=== PATIENT | male | born 1970 | race Caucasian/White ===

== ENCOUNTER 2017-05-03 08:32 | Day surgery (SDC) | payer OTHER ==
[~2017-05-03 08:32] MED LIST: Lactated Ringers 1,000 ML IV SCH; Lidocaine 1%/Sod Bicarbonate in NS 8.4% 1 ML Syringe IDERM PRN; Sodium Chloride 0.9% 10 ML Syringe FLUSH PRN
[2017-05-03] MEDS ORDERED: Midazolam 1 MG/ML 2 ML SDV ONE (09:43)
[2017-05-03] MEDS ORDERED: Propofol 200 MG/20 ML SDV ONE ×2 (09:43→10:19)
[2017-05-03] MEDS ORDERED: fentaNYL 250 MCG/5 ML SDV ONE (09:43)
[2017-05-03] MEDS ORDERED: Dexamethasone 4 MG/ML 5 ML MDV ONE (09:47)
[2017-05-03] MEDS ORDERED: ceFAZolin 1 GM Vial ONE (09:47)
[2017-05-03] MEDS ORDERED: Lidocaine 1% 4 ML ONE (09:47)
[2017-05-03] MEDS ORDERED: Ondansetron 4 MG/2 ML SDV ONE (09:47)
[2017-05-03] MEDS ORDERED: EPINEPHrine 1 MG/ML 30 ML MDV ONE (10:00)
[2017-05-03] MEDS ORDERED: Bupivacaine 0.25% 10 ML SDV ONE (10:04)
--- NOTE | 2017-05-03 10:06 | PCM.PREANE ---
Preanesthetic Assessment - Anesthesia/Transfusion/Family Hx Anesthesia History: Prior Anesthesia Without Reaction Family History of Anesthesia Reaction: No Transfusion History: No Prior Transfusion(s) - Review of Systems General: No Symptoms Pulmonary: No Symptoms, Other (Sleep Apnea. CPAP. ) Cardiovascular: No Symptoms Gastrointestinal: Other (Occasional heartburn maybe once a week.) Neurological: No Symptoms Other: Reports: Thyroid Problems - Physical Assessment NPO Status Date: 05/02/17 NPO Status Time: 23:30 O2 Sat by Pulse Oximetry: 96 Respiratory Rate: 18 Vital Signs: Last Vital Signs Temp 36.6 C 05/03/17 08:39 Pulse 73 05/03/17 08:39 Resp 18 05/03/17 08:39 BP 115/73 05/03/17 08:39 Pulse Ox 96 05/03/17 08:39 Height: 1.7 m Weight: 109.316 kg ASA Class: 2 Mental Status: Alert & Oriented x3 Airway Class: Mallampati = 2 Dentition: Reports: Normal Dentition Thyro-Mental Finger Breadths: 3 Mouth Opening Finger Breadths: 3 ROM/Head Extension: Full Lungs: Clear to Auscultation, Normal Respiratory Effort Cardiovascular: Regular Rate, Regular Rhythm - Lab Values: Laboratory Last Values MRSA (PCR) Negative 05/02/17 12:48 - Allergies Allergies/Adverse Reactions: Allergies Allergy/AdvReac Type Severity Reaction Status Date / Time No Known Allergies Allergy Verified 05/03/17 09:25 - Acknowledgements Anesthesia Type Planned: General Anesthesia Pt an Appropriate Candidate for the Planned Anesthesia: Yes Alternatives and Risks of Anesthesia Discussed w Pt/Guardian: Yes Pt/Guardian Understands and Agrees with Anesthesia Plan: Yes PreAnesthesia Questionnaire HEENT History: Reports: Impaired Vision, Other (See Below) Other HEENT History: wears glasses Cardiovascular History: Reports: None Respiratory History: Reports: Sleep Apnea Gastrointestinal History: Reports: None Genitourinary History: Reports: None FAMILY DAY CARE PROVIDER History: Reports: None Musculoskeletal History: Reports: Other (See Below) Other Musculoskeletal History: left knee pain Neurological History: Reports: None Psychiatric History: Reports: Depression Endocrine/Metabolic History: Reports: Hypothyroidism Hematologic History: Reports: None Immunologic History: Reports: None Oncologic (Cancer) History: Reports: None Dermatologic History: Reports: None - Past Surgical History HEENT Surgical History: Reports: Naso-Sinus Surgery Cardiovascular Surgical History: Reports: None Respiratory Surgical History: Reports: None GI Surgical History: Reports: None Female Surgical History: Reports: None Male Surgical History: Reports: None Endocrine Surgical History: Reports: None Neurological Surgical History: Reports: None Musculoskeletal Surgical History: Reports: Other (See Below) Other Musculoskeletal Surgeries/Procedures:: right shoulder surgery Oncologic Surgical History: Reports: None - SUBSTANCE USE Smoking Status *Q: Current Every Day Smoker Recreational Drug Use History: No - HOME MEDS Home Medications: Home Meds Levothyroxine [Synthroid] 88 mcg PO DAILY 05/02/17 [History] Acetaminophen/HYDROcodone [Bellerose 325-5 MG] 1 - 2 tab PO Q6H PRN #40 tablet 05/03 [Rx] Aspirin 325 mg PO BID #84 tab 05/03/17 [Rx] Sertraline HCl [Sertraline HCl] 50 mg PO DAILY 05/03/17 [History] Sertraline HCl [Sertraline HCl] 100 mg PO DAILY 05/03/17 [History] - CURRENT (IN HOUSE) MEDS Current Meds: Current Medications Lactated Ringer's (Ringers, Lactated) 1,000 mls @ 125 mls/hr IV ASDIRECTED JULITA Stop: 05/03/17 23:00 Last Admin: 05/03/17 08:50 Dose: 125 mls/hr Lidocaine/Sodium Bicarbonate (Buffered Lidocaine 1% In Ns 8.4%) 0.25 ml IDERM ONETIME PRN PRN Reason: Prior to IV Start Stop: 05/03/17 18:00 Last Admin: 05/03/17 08:49 Dose: 0.25 ml Sodium Chloride (Saline Flush) 10 ml FLUSH ASDIRECTED PRN PRN Reason: Keep Vein Open Stop: 05/03/17 18:00 Discontinued Medications Bupivacaine HCl (Sensorcaine-Mpf 0.25%) Confirm Administered Dose 30 ml .ROUTE .STK-MED ONE Stop: 05/03/17 10:05 Cefazolin Sodium (Ancef) Confirm Administered Dose 2 gm .ROUTE .STK-MED ONE Stop: 05/03/17 09:48 Dexamethasone (Dexamethasone) Confirm Administered Dose 20 mg .ROUTE .STK-MED ONE Stop: 05/03/17 09:48 Epinephrine HCl (Adrenalin) 3 mg .XX ONETIME ONE Stop: 05/03/17 10:01 Fentanyl (Sublimaze) Confirm Administered Dose 250 mcg .ROUTE .STK-MED ONE Stop: 05/03/17 09:44 Lidocaine HCl (Xylocaine-Mpf 1%) Confirm Administered Dose 4 mls @ as directed .ROUTE .STK-MED ONE Stop: 05/03/17 09:48 Midazolam HCl (Versed 1 Mg/Ml) Confirm Administered Dose 2 mg .ROUTE .STK-MED ONE Stop: 05/03/17 09:44 Ondansetron HCl (Zofran) Confirm Administered Dose 4 mg .ROUTE .STK-MED ONE Stop: 05/03/17 09:48 Propofol (Diprivan 20 Ml) Confirm Administered Dose 200 mg .ROUTE .STK-MED ONE Stop: 05/03/17 09:44
[2017-05-03] MEDS ORDERED: HYDROmorphone 1 MG/ML Syringe ONE (10:41)
[2017-05-03] MEDS ORDERED: Metoclopramide 10 MG/2 ML SDV ONE (11:11)
[2017-05-03] MEDS ORDERED: Citric Acid/Sodium Citrate Solution 30 ML Cup ONE (11:12)
[2017-05-03] MEDS ORDERED: Ketorolac 30 MG/ML SDV ONE (11:15)
[2017-05-03] MEDS ORDERED: Ondansetron 4 MG/2 ML SDV IVPUSH PRN (11:31)
[2017-05-03] MEDS ORDERED: fentaNYL 100 MCG/2 ML SDV IVPUSH PRN (11:31)
--- NOTE | 2017-05-03 11:32 | PCM.POSTAN ---
POST ANESTHESIA ASSESSMENT - MENTAL STATUS Mental Status: Somnolent - VITAL SIGNS Pulse Rate: 74 SaO2: 98 Resp Rate: 18 Blood Pressure: 124/75 Temperature: 36.9 C - RESPIRATORY Respiratory Status: Respiratory Rate WNL, Airway Patent, O2 Saturation Stable, Supplemental Oxygen - CARDIOVASCULAR CV Status: Pulse Rate WNL, Blood Pressure Stable - GASTROINTESTINAL GI Status: No Symptoms - PAIN Pain Score: 0 - POST OP HYDRATION Hydration Status: Adequate & Stable
[2017-05-03] MEDS ORDERED: Acetaminophen/HYDROcodone 325-5 MG Tab PO ONE (12:45)
[2017-05-03 14:06] VITALS: BP 104/83
--- NOTE | 2017-05-03 14:13 | PCM48HPAN ---
Post Anesthesia Note - EVALUATION WITHIN 48HRS OF ANESTHETIC Vital Signs in Normal Range: Yes Patient Participated in Evaluation: Yes Respiratory Function Stable: Yes Airway Patent: Yes Cardiovascular Function Stable: Yes Hydration Status Stable: Yes Pain Control Satisfactory: Yes Nausea and Vomiting Control Satisfactory: Yes Mental Status Recovered: Yes
--- NOTE | 2017-05-13 22:00 | PCM.OPNOTE ---
- General Post-Op/Procedure Note Date of Surgery/Procedure: 05/03/17 Operative Procedure(s): left knee video arthroscopy with chondroplasty of the patella and medial femoral condyle Pre Op Diagnosis: left knee patellar instability with chondromalacia Post-Op Diagnosis: Same Anesthesia Technique: General LMA, Local Primary Surgeon: Quinten Pal Anesthesia Provider: Dinora Israel X Ray Examiner Of Aircraft: Angely Mcclendon in mLs: 5 Complications: None Condition: Good
--- NOTE | 2017-05-14 09:25 | OR ---
DATE OF OPERATION: 05/03/2017 SURGEON: Quinten Pal MD OPERATION PERFORMED: Left knee video arthroscopy with chondroplasty of the patella and medial femoral condyle. PREOPERATIVE DIAGNOSIS: Left knee patellar instability with chondromalacia. POSTOPERATIVE DIAGNOSIS: Left knee patellar instability with chondromalacia. ANESTHESIA TECHNIQUE: General LMA with local ANESTHESIA PROVIDER: Stephanie Israel CRNA TRUST MAIL CLERK: Angely Mcclendon PA-C. ESTIMATED BLOOD LOSS: 5 mL. COMPLICATIONS: None. CONDITION: Stable. DESCRIPTION OF PROCEDURE: The patient was identified in the preop holding area where proper site was marked and identified by the surgeon. The patient was taken to the operating theater, where after adequate anesthesia, the patient's left lower extremity had a nonsterile tourniquet applied and then was sterilely prepped and draped in the usual sterile fashion. OR time-out was performed. The patient received 2 g of IV Ancef. At this time, the left lower extremity was exsanguinated. Tourniquet was insufflated to 250 mmHg. With the patient lying supine, the patient's knee was bent to 90 degrees, and anterior lateral portal was created. Scope trocar was introduced and a cursory examination showed severe grade 3/4 chondromalacia of both the medial and lateral facets of the patella with significant maltracking noted and tearing of the medial retinaculum. At this time attention was turned to the medial compartment, anterior medial portal was created with the use of a spinal needle and visualization of the medial compartment and a small amount of grade 2 chondromalacia of the medial femoral condyle measuring roughly 8 mm x 1 cm, but it was grade 2 at most. ACL was intact in the notch. The lateral compartment showed no signs of chondromalacia or meniscal tear. At this time, a chondroplasty was performed with medial femoral condyle as well as the patella bringing back to smooth borders. There were no loose flaps at this time. At this time, excess saline was drained from the knee. 0.25% Marcaine was injected around the incisional sites and 3-0 nylon was used for closure of skin. The patient was placed in a sterile soft dressing and sent to PACU in stable condition. MMODAL /[id number] [facility] CENTERDoug
== END 2017-05-03 13:45 | disposition home or self-care (01) ==
LOC: JD.SDS 08:32
PROVIDERS: ATTEND Orthopaedic Surgery
DX: M23.52 Chronic instability of knee, left knee (principal); M22.42 Chondromalacia patellae, left knee; E03.9 Hypothyroidism, unspecified; F32.9 Major depressive disorder, single episode, unspecified; I10 Essential (primary) hypertension; I25.10 Atherosclerotic heart disease of native coronary artery without angina pectoris; I48.91 Unspecified atrial fibrillation; I50.9 Heart failure, unspecified; E11.9 Type 2 diabetes mellitus without complications; J44.9 Chronic obstructive pulmonary disease, unspecified; G47.30 Sleep apnea, unspecified; Z99.89 Dependence on other enabling machines and devices; F17.200 Nicotine dependence, unspecified, uncomplicated
CPT/HCPCS: 29877; 87641; A9270; J0690; J1100; J1170; J1885; J2250; J2405; J2765; J3010; J7120; 01400; J2001; J2704

== ENCOUNTER 2017-06-18 06:06 | Day surgery (SDC) | payer OTHER ==
[~2017-06-18 06:06] MED LIST changes: +Acetaminophen 325 MG Tab PO SCH; +Pregabalin 25 MG Cap PO SCH; +oxyCODONE ER 10 MG TAB.ER PO SCH
--- NOTE | 2017-06-18 06:26 | PCM.PREANE ---
Preanesthetic Assessment - Anesthesia/Transfusion/Family Hx Anesthesia History: Prior Anesthesia Without Reaction Family History of Anesthesia Reaction: No Transfusion History: No Prior Transfusion(s) - Review of Systems General: No Symptoms Pulmonary: No Symptoms Cardiovascular: No Symptoms Gastrointestinal: No Symptoms Neurological: No Symptoms Other: Reports: Thyroid Problems - Physical Assessment NPO Status Date: 06/17/17 NPO Status Time: 21:00 Pulse: 82 O2 Sat by Pulse Oximetry: 98 Respiratory Rate: 16 Blood Pressure: 138/79 Temperature: 97.9 F Height: 5 ft 7 in Weight: 116 kg ASA Class: 2 Mental Status: Alert & Oriented x3 Airway Class: Mallampati = 2 Dentition: Reports: Normal Dentition Thyro-Mental Finger Breadths: 3 Mouth Opening Finger Breadths: 3 ROM/Head Extension: Full Lungs: Clear to Auscultation, Normal Respiratory Effort Cardiovascular: Regular Rate, Regular Rhythm - Lab Values: Laboratory Last Values MRSA (PCR) Negative 05/22/17 09:58 - Allergies Allergies/Adverse Reactions: Allergies Allergy/AdvReac Type Severity Reaction Status Date / Time No Known Allergies Allergy Verified 06/17/17 15:50 - Blood Blood Available: No - Acknowledgements Anesthesia Type Planned: Spinal Pt an Appropriate Candidate for the Planned Anesthesia: Yes Alternatives and Risks of Anesthesia Discussed w Pt/Guardian: Yes Pt/Guardian Understands and Agrees with Anesthesia Plan: Yes PreAnesthesia Questionnaire HEENT History: Reports: Impaired Vision, Other (See Below) Other HEENT History: wears glasses Cardiovascular History: Reports: None Respiratory History: Reports: Sleep Apnea Gastrointestinal History: Reports: None, GERD Genitourinary History: Reports: None PROPELLER ENGINEER History: Reports: None Musculoskeletal History: Reports: Other (See Below) Other Musculoskeletal History: left knee pain Neurological History: Reports: None Psychiatric History: Reports: Depression Endocrine/Metabolic History: Reports: Hypothyroidism, Obesity/BMI 30+ Hematologic History: Reports: None Immunologic History: Reports: None Oncologic (Cancer) History: Reports: None Dermatologic History: Reports: None - Past Surgical History Head Surgeries/Procedures: HEENT Surgical History: Reports: Naso-Sinus Surgery Cardiovascular Surgical History: Reports: None Respiratory Surgical History: Reports: None GI Surgical History: Reports: None Female Surgical History: Reports: None Male Surgical History: Reports: None Endocrine Surgical History: Reports: None Neurological Surgical History: Reports: None Musculoskeletal Surgical History: Reports: Arthroscopic Knee, Shoulder Surgery, Other (See Below) Other Musculoskeletal Surgeries/Procedures:: right shoulder surgery Oncologic Surgical History: Reports: None - SUBSTANCE USE Smoking Status *Q: Former Smoker (quit 2 months ago) Tobacco Use Within Last Twelve Months: Cigarettes, Smokeless Tobacco, Snuff/Dip Second Hand Smoke Exposure: No Days Per Week of Alcohol Use: 0 Recreational Drug Use History: No - HOME MEDS Home Medications: Home Meds Levothyroxine [Synthroid] 88 mcg PO DAILY 05/02/17 [History] Omeprazole Magnesium [Prilosec Otc] 20 mg PO DAILY 06/17/17 [History] - CURRENT (IN HOUSE) MEDS Current Meds: Current Medications Acetaminophen (Tylenol) 975 mg PO ASDIRECTED JULITA Stop: 06/18/17 09:00 Lactated Ringer's (Ringers, Lactated) 1,000 mls @ 125 mls/hr IV ASDIRECTED JULITA Stop: 06/18/17 23:00 Lidocaine/Sodium Bicarbonate (Buffered Lidocaine 1% In Ns 8.4%) 0.25 ml IDERM ONETIME PRN PRN Reason: Prior to IV Start Stop: 06/18/17 18:00 Oxycodone HCl (Oxycontin) 10 mg PO ASDIRECTED JULITA Stop: 06/18/17 09:00 Pregabalin (Lyrica) 50 mg PO ASDIRECTED JULITA Stop: 06/18/17 09:00 Sodium Chloride (Saline Flush) 10 ml FLUSH ASDIRECTED PRN PRN Reason: Keep Vein Open Stop: 06/18/17 18:00
[2017-06-18] MEDS ORDERED: Lidocaine 1% 0 ML ONE (06:34)
[2017-06-18] MEDS ORDERED: fentaNYL 100 MCG/2 ML SDV ONE (06:35)
[2017-06-18] MEDS ORDERED: Midazolam 1 MG/ML 2 ML SDV ONE (06:35)
[2017-06-18] MEDS ORDERED: Propofol 200 MG/20 ML SDV ONE ×2 (06:35→08:08)
[2017-06-18] MEDS ORDERED: ceFAZolin 1 GM Vial ONE (06:37)
[2017-06-18] MEDS ORDERED: Bupivacaine 0.75% 30 ML SDV ONE (06:42)
[2017-06-18] MEDS ORDERED: Pregabalin 25 MG Cap PO ONE (06:45)
[2017-06-18] MEDS ORDERED: Acetaminophen 325 MG Tab PO ONE (06:45)
[2017-06-18] MEDS ORDERED: oxyCODONE ER 10 MG TAB.ER PO ONE (06:45)
[2017-06-18] MEDS ORDERED: EPINEPHrine 1 MG/ML SDV ONE (06:56)
[2017-06-18] MEDS ORDERED: Ropivacaine 0.5% 5 MG/ML 30 ML SDV ONE (06:56)
[2017-06-18] MEDS ORDERED: Lactated Ringers 1,000 ML ONE ×2 (07:12)
[2017-06-18] MEDS ORDERED: Meperidine PF 50 MG/ML Syringe IVPUSH PRN (07:23)
[2017-06-18] MEDS ORDERED: fentaNYL 100 MCG/2 ML SDV IVPUSH PRN (07:23)
[2017-06-18] MEDS ORDERED: Ondansetron 4 MG/2 ML SDV IVPUSH PRN (07:23)
[2017-06-18] MEDS ORDERED: HYDROmorphone 0.5 MG/0.5 ML Syringe IVPUSH PRN (07:23)
[2017-06-18] MEDS ORDERED: Ketorolac 30 MG/ML SDV ONE (07:42)
[2017-06-18] MEDS ORDERED: Ondansetron 4 MG/2 ML SDV ONE (07:42)
[2017-06-18] MEDS: ceFAZolin 1 GM Vial ONE ×2 (07:58→08:10)
[2017-06-18] MEDS: Morphine 8 MG, EPINEPHrine 0.3 MG, Cefuroxime 750 MG, Ketorolac 30 MG, Sodium Chloride ... ONE ×10 (08:01→08:16)
[2017-06-18] MEDS: Bupivacaine 0.25% 30 ML SDV ONE ×2 (08:01→08:16)
[2017-06-18] MEDS: Vancomycin 1 GM SDV ONE ×2 (08:02→08:20)
--- NOTE | 2017-06-18 08:55 | PCM.POSTAN ---
POST ANESTHESIA ASSESSMENT - MENTAL STATUS Mental Status: Alert, Oriented - VITAL SIGNS Pulse Rate: 83 SaO2: 98 Resp Rate: 24 Blood Pressure: 111/65 Temperature: 97.9 F - RESPIRATORY Respiratory Status: Respiratory Rate WNL, Airway Patent, O2 Saturation Stable, Supplemental Oxygen - CARDIOVASCULAR CV Status: Pulse Rate WNL, Blood Pressure Stable - GASTROINTESTINAL GI Status: No Symptoms - PAIN Pain Score: 0 - POST OP HYDRATION Hydration Status: Adequate & Stable
--- NOTE | 2017-06-18 09:33 | PCM.SN ---
- Free Text/Narrative Note: Left selective femoral nerve block at the adductor canal for post-procedure pain control under US guidance requested by Dr. Pal. Time Out: 913 Start: 913 End: 921 Chart reviewed. Consent signed. Questions answered. Appropriate monitors applied. Time out performed. Left mid-shaft femur identified with ultrasound, scanning medially of femur, the femoral artery in the adductor canal visualized , and the femoral nerve located laterally to the artery. The skin was prepped lateral to the ultrasound probe with chlorahexadine times two. The 21ga 4 insulated block needle was inserted under direct ultrasound guidance into the adductor canal. 25mL of 0.5% ropivacaine with 1:200,000 epinephrine was injected circumferentially around the nerve with intermittent negative aspiration noted. Patient tolerated the procedure well. Aseptic technique noted along with sterile gloves and mask. See pictures on progress note and vital signs on nurses notes. Block completed in PACU with assist by Noemí Carver CRNA
--- NOTE | 2017-06-18 09:59 | CR ---
Left knee: AP and lateral views of the left knee were obtained. Comparison: No prior study available. Prosthesis seen within the patellofemoral joint. Medial and lateral joint compartments are maintained in height. Soft tissue air is noted from the surgical procedure. No acute bony abnormality is seen. Impression: 1. Satisfactory postoperative radiographic appearance of recently placed prosthesis within the patellofemoral joint. Diagnostic code #2
--- NOTE | 2017-06-18 11:04 | PCM48HPAN ---
Post Anesthesia Note - EVALUATION WITHIN 48HRS OF ANESTHETIC Vital Signs in Normal Range: Yes Patient Participated in Evaluation: Yes Respiratory Function Stable: Yes Airway Patent: Yes Cardiovascular Function Stable: Yes Hydration Status Stable: Yes Pain Control Satisfactory: Yes Nausea and Vomiting Control Satisfactory: Yes Mental Status Recovered: Yes (No complaints- in bed drinkiing and eating) Blood Pressure: 126/75
[2017-06-18] MEDS ORDERED: diphenhydrAMINE 25 MG Cap PO ONE (11:42)
[2017-06-18] MEDS ORDERED: Morphine 2 MG/ML Syringe IVPUSH PRN (12:51)
[2017-06-18] MEDS ORDERED: Acetaminophen/oxyCODONE 325-5 MG Tab PO PRN (12:55)
[2017-06-18] MEDS ORDERED: ceFAZolin 2 GM in Premix Bag 1 BAG IV SCH (13:30)
[2017-06-18 14:08] VITALS: BP 133/98
[2017-06-18] MEDS ORDERED: Ketorolac 60 MG/2 ML SDV IVPUSH ONE (14:33)
--- NOTE | 2017-06-25 07:53 | PCM.OPNOTE ---
- General Post-Op/Procedure Note Date of Surgery/Procedure: 06/18/17 Operative Procedure(s): left patellofemoral arthroplasty Pre Op Diagnosis: left patellofemoral arthritis Post-Op Diagnosis: Same Anesthesia Technique: Local, MAC, Regional Block, Spinal Primary Surgeon: Quinten Pal Anesthesia Provider: Otilio James [employer] Certified Network Associate: Angely Mcclendon [employer] Certified Network Associate: Wendy Silveira EBYani in mLs: 5 Complications: None Condition: Good
--- NOTE | 2017-06-25 08:50 | OR ---
DATE OF OPERATION: 06/18/2017 SURGEON: Quinten Pal MD OPERATION PERFORMED: Left patellofemoral arthroplasty. PREOPERATIVE DIAGNOSIS: Left patellofemoral arthritis. POSTOPERATIVE DIAGNOSIS: Left patellofemoral arthritis. ANESTHESIA: Local MAC with regional adductor canal block and spinal. ANESTHESIA PROVIDER: Otilio James CRNA. ASSISTANTS: 1. Angely Mcclendon PA-C. 2. Wendy Silveira LPN. ESTIMATED BLOOD LOSS: 5 mL. COMPLICATIONS: None. CONDITION: Stable. DESCRIPTION OF PROCEDURE: The patient was identified in the preoperative holding area. Proper site was marked and identified by the surgeon. The patient was taken back to operating theater, where after adequate anesthesia, the patient's left lower extremity had a nonsterile tourniquet applied and was then sterilely prepped and draped in the usual sterile fashion. OR time-out was performed. The patient received 2 g IV Ancef. The left lower extremity was then exsanguinated. Tourniquet was insufflated to 250 mmHg. Standard medial parapatellar incision was made and medial parapatellar arthrotomy was created with a smaller incision making sure not to disrupt the intermeniscal ligament. At this time, the patella was everted and was found to have a significant, where it measured a 24 and it was resected to a 14 for a 32 x 9 mm patella. Drill holes were then drilled and found to be in adequate spot. Lateral facetectomy was then completed. Attention was turned to the trochlea, drill was placed intramedullary and the intramedullary guide for the anterior cut was then placed. The stylet was then placed in the middle of the femur and external rotation was set using the epicondyles and Alda's Line as the reference. This was then pinned into place and an anterior cut was completed and found to be adequate resection. At this time, there was found to be a size 3. The size 3 mill guide was then placed and secured in place with screws starting with the central track, the central track was milled, the lateral track was milled, and then the medial track was milled at this time. The other drill guide was then placed and the drill for the central peg was then drilled along with the other 3 pegs on the anterior cut. Once this was completed, the trial was placed as well as the trial patella. The patient's knee was brought through range of motion. Patella was tracking centrally with no signs of subluxation or dislocation. At this time, cement was mixed on the back table and a size 3 Niin trochlear component was then impacted into place. Excess cement was removed. A size 32 x 9 mm patellar button was then placed and cemented into place. At this time, excess cement was removed. A 3 L of pulse lavage irrigation with Ancef were then irrigated through the knee, periarticular injection was then completed. Once the cement had set up, the patient's knee was brought through range of motion, and it was again found to be stable with no subluxation or dislocation. At this time, topical vancomycin powder as well as tranexamic acid were placed, #2 barbed suture was used for closure of the medial parapatellar arthrotomy, 2-0 Vicryl was used subcutaneously and Monocryl or Prineo used for the skin. The patient had a sterile soft dressing applied and sent to the PACU in stable condition. MMODAL /[id number]
== END 2017-06-18 17:35 | disposition home or self-care (01) ==
LOC: JD.MS 06:06 → JD.SDS 06:06
PROVIDERS: ATTEND Orthopaedic Surgery
DX: M17.12 Unilateral primary osteoarthritis, left knee (principal); F32.9 Major depressive disorder, single episode, unspecified; K21.9 Gastro-esophageal reflux disease without esophagitis; G47.33 Obstructive sleep apnea (adult) (pediatric); F17.210 Nicotine dependence, cigarettes, uncomplicated; Z79.82 Long term (current) use of aspirin; Z79.899 Other long term (current) drug therapy
CPT/HCPCS: 27442; 64447; 73560; 87641; 97110; 97116; 97161; A9270; C1713; C1776; J0171; J0690; J0697; J1885; J2250; J2270; J2405; J2795; J3010; J3370; J3490; J7120; J2704

== ENCOUNTER 2019-03-06 05:32 | Emergency (ER) | payer OTHER ==
[2019-03-06] MEDS ORDERED: methylPREDNISolone Sodium Succinate 125 MG/2 ML SDV IVPUSH ONE (05:51)
[2019-03-06] MEDS ORDERED: Famotidine 20 MG/2 ML SDV IVPUSH ONE (05:51)
[2019-03-06] MEDS ORDERED: diphenhydrAMINE 50 MG/ML SDV IVPUSH ONE (05:51)
--- NOTE | 2019-03-06 05:51 | EDM.PDOC ---
ED HPI GENERAL MEDICAL PROBLEM - General Chief Complaint: Allergic Reaction Stated Complaint: ALLERGIC REACTION Time Seen by Provider: 03/06/19 05:44 - History of Present Illness INITIAL COMMENTS - FREE TEXT/NARRATIVE: 48-year-old male presents the emergency room with an allergic type reaction. This started actually on Sunday. And it is been gradually getting worse. 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 He has had this reaction in the past after driving this. The patient has a scratchy throat no shortness of breath but every time he swallows he feels some bouncing in the back of his throat. He is had his digits swell up as well as his hands in the left side of his face. He has had no gastrointestinal symptoms - Related Data Allergies Allergy/AdvReac Type Severity Reaction Status Date / Time No Known Allergies Allergy Verified 03/06/19 05:36 Home Meds: Home Meds Levothyroxine [Synthroid] 88 mcg PO DAILY 05/02/17 [History] Omeprazole Magnesium [Prilosec Otc] 20 mg PO DAILY 06/17/17 [History] Acetaminophen/oxyCODONE [Percocet 325-5 MG] 1 - 2 each PO Q6H PRN #60 tab [Rx] Aspirin 325 mg PO BID #84 tab 06/18/17 [Rx] Cyclobenzaprine [Flexeril] 10 mg PO Q8H PRN #40 tab 06/18/17 [Rx] predniSONE [Prednisone] 40 mg PO Q24H #8 tablet 03/06/19 [Rx] Past Medical History HEENT History: Reports: Impaired Vision, Other (See Below) Other HEENT History: wears glasses Cardiovascular History: Reports: None Respiratory History: Reports: Sleep Apnea Gastrointestinal History: Reports: None, GERD Genitourinary History: Reports: None 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 Musculoskeletal History: Reports: Other (See Below) Other Musculoskeletal History: left knee pain Neurological History: Reports: None Psychiatric History: Reports: Depression Endocrine/Metabolic History: Reports: Hypothyroidism, Obesity/BMI 30+ Hematologic History: Reports: None Immunologic History: Reports: None Oncologic (Cancer) History: Reports: None Dermatologic History: Reports: None - Past Surgical History HEENT Surgical History: Reports: Naso-Sinus Surgery Cardiovascular Surgical History: Reports: None Respiratory Surgical History: Reports: None GI Surgical History: Reports: None Male Surgical History: Reports: None Endocrine Surgical History: Reports: None Neurological Surgical History: Reports: None Musculoskeletal Surgical History: Reports: Arthroscopic Knee, Knee Replacement, Shoulder Surgery, Other (See Below) Other Musculoskeletal Surgeries/Procedures:: right shoulder surgery Oncologic Surgical History: Reports: None Social & Family History - Caffeine Use Caffeine Use: Reports: Coffee ED ROS ALLERGIC REACTION - Review of Systems Review Of Systems: See Below Constitutional: Reports: No Symptoms HEENT: Reports: Other (Some swelling in his throat and itching in his throat) Respiratory: Reports: No Symptoms Cardiovascular: Reports: No Symptoms Endocrine: Reports: No Symptoms GI/Abdominal: Reports: No Symptoms : Reports: No Symptoms Musculoskeletal: Reports: No Symptoms Skin: Reports: Other (This and swelling in his hands and digits as well as the left side of his face) Neurological: Reports: No Symptoms Immunologic: Reports: Environmental Allergy ED EXAM GENERAL NO PERIP PULSE - Physical Exam Exam: See Below Exam Limited By: No Limitations General Appearance: Alert, No Apparent Distress Ears: Normal External Exam, Normal Canal, Hearing Grossly Normal, Normal TMs Nose: Normal Inspection, Normal Mucosa, No Blood Throat/Mouth: Other (Uvula is swollen) Head: Atraumatic, Other (Left-sided facial swelling) Neck: Normal Inspection, Supple, Non-Tender, Full Range of Motion. No: Lymphadenopathy (L), Lymphadenopathy (R) Respiratory/Chest: No Respiratory Distress, Lungs Clear, Normal Breath Sounds Back Exam: Normal Inspection. No: CVA Tenderness (L), CVA Tenderness (R) Skin Exam: Warm, Dry, Other (Redness and swelling over the digits hands and left face no other appreciable rash) Lymphatic: No Adenopathy Course - Vital Signs Last Recorded V/S: Last Vital Signs Temp 36.6 C 03/06/19 05:36 Pulse 98 03/06/19 05:36 Resp 18 03/06/19 05:36 BP 142/80 H 03/06/19 05:36 Pulse Ox 85 L 03/06/19 05:36 - Orders/Labs/Meds Meds: Medications Discontinued Medications Generic Name Dose Route Start Last Admin Trade Name Freq PRN Reason Stop Dose Admin Diphenhydramine HCl 25 mg 03/06/19 05:51 03/06/19 05:58 Benadryl IVPUSH 03/06/19 05:52 25 mg ONETIME ONE Administration Famotidine 40 mg 03/06/19 05:51 03/06/19 05:59 Pepcid IVPUSH 03/06/19 05:52 40 mg ONETIME ONE Administration Methylprednisolone Sodium Succinate 125 mg 03/06/19 05:51 03/06/19 06:00 Solu-Medrol IVPUSH 03/06/19 05:52 125 mg ONETIME ONE Administration Departure - Departure Time of Disposition: 06:52 Disposition: Home, Self-Care 01 Clinical Impression: Allergic reaction - Discharge Information Prescriptions: predniSONE [Prednisone] 40 mg PO Q24H #8 tablet Instructions: Allergies, Adult, [id number] Referrals: Kimberly Nicholson PA-C [Primary Care Provider] - Forms: ED Department Discharge, ED Return to Work/School Form Additional Instructions: Return to the emergency room with any questions problems or worsening symptoms. Take the prednisone 2 tablets every morning starting tomorrow you will do this for 4 days. litigation support analyst some [id number] famotidine, this is the generic for Pepcid take 1 twice daily for 1 week then 1 daily for 1 week and then as needed. Take Benadryl 1 tablet 4 times a day today then as needed Follow-up in the clinic as needed. Sepsis Event Note - Evaluation Sepsis Screening Result: No Definite Risk - Focused Exam Vital Signs: Vital Signs Temp Pulse Resp BP Pulse Ox 03/06/19 05:36 36.6 C 98 18 142/80 H 85 L Date Exam was Performed: 03/06/19 Time Exam was Performed: 07:06
[2019-03-06 07:12] VITALS: BP 114/74; PULSE 64
== END 2019-03-06 07:10 | disposition home or self-care (01) ==
LOC: JD.ED 05:32
DX: T78.40XA Allergy, unspecified, initial encounter (principal); K21.9 Gastro-esophageal reflux disease without esophagitis; F32.9 Major depressive disorder, single episode, unspecified; E03.9 Hypothyroidism, unspecified; E66.9 Obesity, unspecified; Z79.899 Other long term (current) drug therapy; Z79.82 Long term (current) use of aspirin
CPT/HCPCS: 96374; 96375; 99283; J1200; J2930; J3490

== ENCOUNTER 2022-03-13 10:00 | Emergency (ER) | payer OTHER ==
[2022-03-13] MEDS ORDERED: Sodium Chloride 0.9% 10 ML Syringe FLUSH PRN (10:37)
[2022-03-13] MEDS ORDERED: methylPREDNISolone Sodium Succinate 125 MG/2 ML SDV IVPUSH ONE (10:37)
[2022-03-13] MEDS ORDERED: Famotidine 20 MG/2 ML SDV IVPUSH ONE (10:38)
[2022-03-13] MEDS ORDERED: diphenhydrAMINE 50 MG/ML SDV IVPUSH ONE (10:38)
[2022-03-13 12:39] VITALS: BP 137/90; PULSE 77
== END 2022-03-13 12:40 | disposition home or self-care (01) ==
LOC: JD.ED 10:00
DX: T78.40XA Allergy, unspecified, initial encounter (principal); E66.9 Obesity, unspecified; Z68.37 Body mass index [BMI] 37.0-37.9, adult; Z79.899 Other long term (current) drug therapy
CPT/HCPCS: 96374; 96375; 99283; J1200; J2930; J3490

== ENCOUNTER 2024-10-24 16:35 | Emergency (ER) | payer OTHER ==
[2024-10-24 18:50] VITALS: BP 117/80; PULSE 67
== END 2024-10-24 18:50 | disposition home or self-care (01) ==
LOC: JD.ED 16:35
DX: R60.0 Localized edema (principal); M79.662 Pain in left lower leg; K21.9 Gastro-esophageal reflux disease without esophagitis; E03.9 Hypothyroidism, unspecified; Z79.890 Hormone replacement therapy; Z79.899 Other long term (current) drug therapy
CPT/HCPCS: 93971-26-LT; 93971-LT; 99283

== ENCOUNTER 2024-12-03 19:00 | Emergency (ER) | payer OTHER ==
[2024-12-03] MEDS ORDERED: Sodium Chloride 0.9% 10 ML Syringe FLUSH PRN (19:42)
[2024-12-03 19:54] LABS: BASOPHILS ABSOLUTE AUTO 0.1 K/mm3 (0.0-0.2); BASOPHILS PERCENT AUTO 0.8 % (0.0-1.0); EOSINOPHILS ABSOLUTE AUTO 0.2 K/mm3 (0.0-0.4); EOSINOPHILS PERCENT AUTO 2.3 % (0.0-6.0); IMMATURE GRAN ABSOLUTE AUTO 0.03 K/mm3 (0.00-0.05); IMMATURE GRAN PERCENT AUTO 0.4 % (0.0-0.4); LYMPHOCYTES ABSOLUTE AUTO 2.2 K/mm3 (1.0-4.8); LYMPHOCYTES PERCENT AUTO 28.3 % (24.0-44.0); MEAN PLATELET VOLUME 10.9 fl (9.4-12.4); MONOCYTES ABSOLUTE AUTO 0.7 K/mm3 (0.0-0.8); MONOCYTES PERCENT AUTO 8.5 % (0.0-8.0); NEUTROPHILS ABSOLUTE AUTO 4.7 K/mm3 (1.8-7.7); NEUTROPHILS PERCENT AUTO 59.7 % (41.0-71.0); NRBC ABSOLUTE 0.00 (0.00-0.02); NRBC PERCENT 0.0 % (0.0-0.2); PLATELET COUNT,PLT 164 K/mm3 (150-400); RED BLOOD CELL COUNT 5.37 M/mm3 (4.52-5.90); WHITE BLOOD CELL COUNT,WBC 7.81 K/mm3 (3.9-11.3)
[2024-12-03 20:18] LABS: A/G RATIO 1.1 (1-2); ALANINE AMINOTRANSFERASE,ALT 30.0 U/L (16-63); ASPARTATE AMNIOTRANSFERASE,AST 20.0 U/L (15-37); BILIRUBIN TOTAL 0.8 mg/dL (0.2-1.0); BLOOD UREA NITROGEN,BUN 18.0 mg/dL (7-18); CARBON DIOXIDE,CO2 25.0 mEq/L (21-32); CHLORIDE,CL 105.0 mEq/L (98-107); CREATININE 1.2 mg/dL (0.7-1.3); EST CRCL DRUG DOSING (CG) 64.98 mL/min; ESTIMATED GFR 73.0 mL/min (>60); GLUCOSE RANDOM 86.0 mg/dL (70-99); POTASSIUM,K 4.0 mEq/L (3.5-5.1); PROTEIN TOTAL,TP 8.0 g/dl (6.4-8.2); SODIUM,NA 141.0 mEq/L (136-145)
[2024-12-03 23:55] VITALS: BP 133/69; PULSE 78
== END 2024-12-03 23:45 | disposition home or self-care (01) ==
LOC: JD.ED 19:00
DX: I82.402 Acute embolism and thrombosis of unspecified deep veins of left lower extremity (principal); E03.0 Congenital hypothyroidism with diffuse goiter; Z79.890 Hormone replacement therapy; Z79.01 Long term (current) use of anticoagulants
CPT/HCPCS: 36415; 80053; 85025; 85379; 85652; 86140; 93971; 99284; A9270